=== PATIENT | male | born 1940 | race Caucasian/White ===

== ENCOUNTER 2021-08-23 10:36 | Outpatient (CLI) | payer OTHER ==
[2021-08-23 23:31] LABS: SARS-CoV-2 PCR by NAA Not Detected (NotDetected)
== END 2021-08-23 10:37 | disposition home or self-care (01) ==
LOC: CSHLAB 10:36
PROVIDERS: ATTEND Surgery
DX: Z01.818 Encounter for other preprocedural examination (principal); Z20.822 Contact with and (suspected) exposure to COVID-19; K80.20 Calculus of gallbladder without cholecystitis without obstruction
CPT/HCPCS: 93005; 93010; U0003; U0005

== ENCOUNTER 2021-08-26 08:07 | Day surgery (SDC) | payer OTHER ==
[2021-08-23 14:43] VITALS: BMI 24.3
[~2021-08-26 08:07] MED LIST: Lidocaine 1% MPF 2 ML VIAL ONE
[2021-08-26] MEDS ORDERED: PROPOFOL 20 ML ONE (08:39)
[2021-08-26] MEDS ORDERED: Ondansetron PF 4 MG/2 ML Vial ONE (08:39)
[2021-08-26] MEDS ORDERED: Dexamethasone 20 MG/5 ML VIAL ONE (08:39)
[2021-08-26] MEDS ORDERED: Lidocaine 1% PF 5 ML VIAL ONE (08:39)
[2021-08-26] MEDS ORDERED: Fentanyl 100 MCG/2 ML VIAL ONE ×2 (08:39→10:13)
[2021-08-26] MEDS ORDERED: Rocuronium Bromide 10 MG/ML (10ML VIAL) ONE (08:40)
[2021-08-26] MEDS ORDERED: ceFAZolin 2 GM/Dextrose 50 ML IVPB ONE (08:43)
[2021-08-26] MEDS ORDERED: Lidocaine 2% PF 5 ML VIAL ONE (08:46)
[2021-08-26] MEDS ORDERED: Bupivacaine PF 0.5% 30 ML VIAL ONE (09:15)
[2021-08-26] MEDS ORDERED: EPINEPHrine 1 MG/ML AMP ONE (09:15)
[2021-08-26] MEDS ORDERED: PHENYLEPHRINE-NS 100 MCG/ML 10 ML SYRINGE ONE (09:22)
[2021-08-26] MEDS ORDERED: Glycopyrrolate 0.2 MG/ML 5 ML SYRINGE ONE (09:46)
[2021-08-26] MEDS ORDERED: Acetaminophen 325 MG TAB PO PRN (10:19)
[2021-08-26] MEDS ORDERED: HYDROcodone/Acetaminophen 5/325 mg Tablet PO PRN (10:19)
== END 2021-08-26 11:25 | disposition home or self-care (01) ==
LOC: CSHSDC 08:07
PROVIDERS: ATTEND Surgery
PROC: 0FT44ZZ Resection of Gallbladder, Percutaneous Endoscopic Approach (ICD-10-PCS; principal; 2021-08-26)
DX: K80.10 Calculus of gallbladder with chronic cholecystitis without obstruction (principal); I10 Essential (primary) hypertension; Z79.899 Other long term (current) drug therapy
CPT/HCPCS: 47562; C1776; 88304; J0171; J0690; J1100; J2001; J2405; J2704; J3010; S0020

== ENCOUNTER 2023-06-02 10:11 | Outpatient (CLI) | payer MEDICARE | END 2023-06-02 10:12 | disposition home or self-care (01) | LOC: CSHRAD 10:11 | PROVIDERS: ATTEND Internal Medicine | DX: M54.41 Lumbago with sciatica, right side (principal); M25.551 Pain in right hip; M47.816 Spondylosis without myelopathy or radiculopathy, lumbar region; M16.0 Bilateral primary osteoarthritis of hip | CPT/HCPCS: 72100 ==

== ENCOUNTER 2023-06-14 13:03 | Outpatient (CLI) | payer MEDICARE | END 2023-06-14 13:04 | disposition home or self-care (01) | LOC: CSHMRI 13:03 | PROVIDERS: ATTEND Internal Medicine | DX: M54.41 Lumbago with sciatica, right side (principal); M47.816 Spondylosis without myelopathy or radiculopathy, lumbar region; M48.9 Spondylopathy, unspecified | CPT/HCPCS: 72148 ==

== ENCOUNTER 2023-06-29 13:04 | Outpatient (CLI) | payer MEDICARE | END 2023-06-29 13:05 | disposition home or self-care (01) | LOC: CSHCT 13:04 | PROVIDERS: ATTEND Internal Medicine | DX: M89.9 Disorder of bone, unspecified (principal) | CPT/HCPCS: 72133; 82565 ==